=== PATIENT | female | born 1985 | race Caucasian/White ===

== ENCOUNTER 2016-05-07 01:45 | Emergency (ER) | payer BC ==
[2016-05-07 02:04] VITALS: BP 151/75
[2016-05-07] MEDS ORDERED: HYDROcodone/ACETAMIN 5-325 MG* 1 TAB PO ONE (02:28)
--- NOTE | 2016-05-07 05:13 | ED ---
Upper Extremity Pain - HPI Summary HPI Summary: Patient suffered mechanical fall on the stairs and had immediate R wrist pain. No elbow or shoulder pain, sensory deficits. No allev factors. Aggrav by movement. - History of Current Complaint Chief Complaint: EDTraumaMultiple Stated Complaint: FALL/R WRIST PAIN Time Seen by Provider: 05/07/16 02:09 Hx Obtained From: Patient Mechanism Of Injury: Fall From Height Of: Onset/Duration: Started Hours Ago Timing: Intermittent Severity Initially: Moderate Severity Currently: Mild Pain Location: Wrist Character: Throbbing Aggravating Factor(s): Movement - Allergies/Home Medications Allergies/Adverse Reactions: Allergies Allergy/AdvReac Type Severity Reaction Status Date / Time No Known Allergies Allergy Verified 05/07/16 02:01 PMH/Surg Hx/FS Hx/Imm Hx Previously Healthy: Yes Infectious Disease History: No Infectious Disease History: Denies: Traveled Outside the [place] in Last 30 Days - Social History Alcohol Use: Occasionally Substance Use Type: Reports: None Smoking Status (MU): Unknown if Ever Smoked Review of Systems Positive: Arthralgia All Other Systems Reviewed And Are Negative: Yes Physical Exam Triage Information Reviewed: Yes Vital Signs On Initial Exam: Initial Vitals Temp Pulse Resp BP Pulse Ox 99.0 F 86 14 151/75 99 05/07/16 02:01 05/07/16 02:01 05/07/16 02:01 05/07/16 02:01 05/07/16 02:01 Vital Signs Reviewed: Yes Appearance: Positive: Well-Appearing, Well-Nourished, Pain Distress Skin: Positive: Warm, Skin Color Reflects Adequate Perfusion, Dry, Other - Slight distal radius dorsal swelling. No snuff box ttp. Neck: Positive: Supple Respiratory/Lung Sounds: Positive: Clear to Auscultation, Breath Sounds Present Cardiovascular: Positive: Normal, RRR, Pulses are Symmetrical in both Upper and Lower Extremities Abdomen Description: Positive: Nontender, No Organomegaly, Soft Musculoskeletal: Positive: Limited @ - Distal radius, Other - SILT M/U/R. Strenght is 5/5 AIN/PIN/Ulnar. No snuff box ttp. Neurological: Positive: Normal, Sensory/Motor Intact, Alert, Oriented to Person Place, Time, CN Intact II-III - Andrzej Coma Scale Coma Scale Total: 15 Procedures - Splinting Hand-Made Type: orthoglass Splint: sugar-tong Pre-Proc Neuro Vasc Exam: normal Post-Proc Neuro Vasc Exam: normal Diagnostics - Vital Signs Vital Signs Temp Pulse Resp BP Pulse Ox 05/07/16 02:01 99.0 F 86 14 151/75 99 - Laboratory Lab Statement: Any lab studies that have been ordered have been reviewed, and results considered in the medical decision making process. Course/Dx - Diagnoses Differential Diagnosis/HQI/PQRI: Positive: Fracture (Closed), Strain, Sprain Provider Diagnoses: Distal radius fracture, right Discharge - Discharge Plan Condition: Stable Disposition: HOME Prescriptions: HYDROcodone/ACETAMIN 5-325 MG* [[place] 5-325 TAB*] 2 tab PO Q6H PRN #5 tab MDD 5 PRN Reason: Pain Patient Education Materials: Wrist Fracture in Adults (ED) Referrals: Non Staff,Doctor [Primary Care Provider] -
--- NOTE | 2016-05-07 09:06 | RAD ---
INDICATION: Pain and swelling at the base of the first metacarpal after a slip and fall injury COMPARISON: None. TECHNIQUE: 3 views right wrist. REPORT: There is a nondisplaced lucent fracture line perpendicular to the orientation of the bone at the distal right radial metaphysis. Remaining visualized bones are intact and properly aligned. IMPRESSION: Nondisplaced fracture of the distal right radial metaphysis.
== END 2016-05-07 02:52 | disposition home or self-care (01) ==
LOC: ED 01:45
DX: S52.501A Unspecified fracture of the lower end of right radius, initial encounter for closed fracture (principal); M25.531 Pain in right wrist; W10.9XXA Fall (on) (from) unspecified stairs and steps, initial encounter; Y93.9 Activity, unspecified; Y92.9 Unspecified place or not applicable; Y99.9 Unspecified external cause status
CPT/HCPCS: 99282